=== PATIENT | male | born 1990 | race Caucasian/White ===

== ENCOUNTER → 2016-12-29 | Outpatient (REF) | payer BC | LOC: M LAB REF 10:35 | PROVIDERS: ATTEND Physician Assistant | DX: J02.9 Acute pharyngitis, unspecified (principal) ==

== ENCOUNTER → 2019-01-02 | Outpatient (CLI) | payer BC ==
--- NOTE | 2019-01-08 11:05 | REP ---
LEFT KNEE, SIX VIEWS: Six views of the left knee are performed. No acute fracture or dislocation is seen. There is no intrinsic osseous pathology. Moderate joint effusion is noted. IMPRESSION: Moderate joint effusion. No acute fracture or dislocation. Electronically Signed by Matheus Howard MD 01/15/2019 05:25 P
== END ==
LOC: M WUC 11:46
PROVIDERS: ATTEND Physician Assistant
DX: S80.02XA Contusion of left knee, initial encounter (principal); X58.XXXA Exposure to other specified factors, initial encounter; Y92.89 Other specified places as the place of occurrence of the external cause; Y93.9 Activity, unspecified; Y99.9 Unspecified external cause status

== ENCOUNTER → 2024-01-10 | Outpatient (CLI) | payer SELFPAY | LOC: M OUTALCOH 14:02 | PROVIDERS: ATTEND Psychiatry & Neurology Psychiatry | DX: F10.10 Alcohol abuse, uncomplicated (principal) ==

== ENCOUNTER 2024-01-22 09:00 | Outpatient (RCR) | payer SELFPAY | END 2024-01-25 | LOC: M OUTALCOH 09:00 | PROVIDERS: ATTEND Psychiatry & Neurology Psychiatry | DX: F10.10 Alcohol abuse, uncomplicated (principal) ==

== ENCOUNTER 2024-02-21 15:53 | Outpatient (RCR) | payer SELFPAY | END 2024-02-24 | LOC: M OUTALCOH 15:53 | PROVIDERS: ATTEND Psychiatry & Neurology Psychiatry | DX: F10.10 Alcohol abuse, uncomplicated (principal) ==

== ENCOUNTER → 2024-03-26 | Outpatient (RCR) | payer SELFPAY | LOC: M OUTALCOH 03-04 07:57 | PROVIDERS: ATTEND Psychiatry & Neurology Psychiatry | DX: F10.10 Alcohol abuse, uncomplicated (principal) ==

== ENCOUNTER 2024-04-23 10:00 | Outpatient (RCR) | payer SELFPAY | END 2024-04-26 | LOC: M OUTALCOH 10:00 | PROVIDERS: ATTEND Psychiatry & Neurology Psychiatry | DX: F10.10 Alcohol abuse, uncomplicated (principal) ==

== ENCOUNTER 2024-05-10 07:50 | Outpatient (RCR) | payer SELFPAY | END 2024-05-24 | LOC: M OUTALCOH 07:50 | PROVIDERS: ATTEND Psychiatry & Neurology Psychiatry | DX: F10.10 Alcohol abuse, uncomplicated (principal) ==